=== PATIENT | female | born 1990 | race Caucasian/White ===

== ENCOUNTER 2019-09-08 17:25 | Emergency (ER) | payer SELFPAY ==
--- NOTE | 2019-09-08 17:27 | ED_ITS ---
Entered by Lina Galindo, acting as scribe for Mina Gutiérrez DO Documented by User: Mina Gutiérrez DO 09/08/19 18:02 HPI - Seizure General: Chief Complaint: Seizure Stated Complaint: MULTIPLE SEIZURES Time Seen by Provider: 09/08/19 17:29 Source: patient and EMS Mode of arrival: EMS Limitations: no limitations History of Present Illness: HPI Narrative: 29 yo female presents with multiple seizures. pt states this started today. pt states she a hx of seizures, but has not been taking her medications due to insurance. pt states she has had neck swelling. pt denies any other symptoms at this time. MD complaint: seizure (2 today) Onset (ago): day(s) (today) Witnessed: Yes - by Other Trauma: No Seizure History: Yes Place: Home Possible Precipitating Event: medication (been of medications due to insurance) Associated symptoms: Reports other (neck swelling); Deny chest pain, chills, confusion, fever(s) or malaise Treatments prior to arrival: none Review of Systems Const: Denies: fever, chills, body aches, change in appetite, fatigue or malaise Eyes: Denies: change in vision or blurry vision ENMT: Denies: throat pain, ear pain, nasal discharge or nasal congestion Card: Denies: chest pain, edema, shortness of breath on exertion or shortness of breath when lying down Resp: Denies: shortness of breath, productive cough or non-productive cough GI: Denies: abdominal pain, nausea, vomiting, vomiting blood, coffee grounds in vomit, diarrhea, constipation, bloating, blood in stool or black tarry stool : Denies: flank pain, difficulty urinating, painful urination, urinary jammie quency or urinary urgency Musc: Denies: neck pain, back pain, extremity pain, extremity swelling, joint pain or joint swelling Skin/Breast: Denies: rash or itching Neuro: Denies: headache, numbness in extremities, weakness in extremities, changes in sensation, lack of coordination, difficulty walking, frequent falls, dizziness, vertigo or confusion Psych: Denies: anxiety, depression, loss of interest, visual hallucinations, auditory hallucinations, suicidal ideation or homicidal ideation Endo: Denies: excessive urination, excessive thirst, tired all the time or cold intolerance Ruddy/Lymph: Denies: easy bruising, easy bleeding, petechiae, enlarged lymph nodes or tender lymph nodes [facility] ED PFSH: Medical History (Updated 09/08/19 @ 19:04 by Yesica Rodriguez) History of fibromyalgia History of lupus History of seizure Social History Smoking and tobacco status: never smoked Physical Exam Const: COMMON NORMALS: no apparent distress GENERAL APPEARANCE: cooperative and comfortable ORIENTATION/CONSCIOUSNESS: Yes awake, Yes oriented to person, Yes oriented to place and Yes oriented to time HENMT: COMMON NORMALS: normocephalic, head/scalp atraumatic, hearing grossly normal bilaterally, external ears normal, EAC's normal, TM's normal bilaterally, nasal mucous membranes and turbinates normal, moist oral mucous membranes and oropharynx normal HEAD & SCALP: normocephalic and atraumatic NOSE: nasal mucous membranes and turbinates normal EXTERNAL EAR: Yes external ears normal EXTERNAL AUDITORY CANAL: EAC's normal TYMPANIC MEMBRANE: TM's normal bilaterally Eye: COMMON NORMALS: PERRL, EOMs intact bilaterally, conjunctivae normal and no scleral icterus CONJUNCTIVA: Yes conjunctivae normal PUPIL: Yes PERRL Neck/C-Spine: COMMON NORMALS: full ROM, no lymphadenopathy, supple and no JVD Lymph: LYMPHATIC: no lymphadenopathy noted and no lymphedema noted Resp: COMMON NORMALS: normal respiratory effort, no retractions, no use of accessory muscles and clear to auscultation bilaterally AUSCULTATION: clear to auscultation bilaterally Cardio: COMMON NORMALS: no JVD, regular rate, regular rhythm and no murmurs RATE: regular rate RHYTHM: regular rhythm GI: COMMON NORMALS: soft to palpation and no hepatosplenomegaly AUSCULTATION: Yes normoactive bowel sounds PALPATION: Yes soft, No tender, No guarding and Yes no hepatosplenomegaly Extremity: COMMON NORMALS: normal to inspection, normal capillary refill, no clubbing, cyanosis or edema, no calf tenderness and no pedal edema Neuro: SENSORIUM/ORIENTATION: Yes oriented to person, Yes oriented to place and Yes oriented to time Skin: COMMON NORMALS: no rashes or lesions noted GENERAL SKIN EXAM: no rashes or lesions noted Course ED course: Signed patient out to Dr. Roberson. Labs pending patient being loaded with Bandspeedra Vital Signs: Vital signs: Vital Signs Pulse Rate 86 09/08/19 19:17 Respiratory Rate 17 09/08/19 19:17 Blood Pressure 113/73 09/08/19 19:17 Pulse Oximetry 96 09/08/19 19:17 MDM - Seizure Lab Data: Labs: Lab Results 09/08/19 09/08/19 09/08/19 Range/Units 17:57 17:57 17:57 WBC 10.1 H (4.0-10.0) 10^3/ uL RBC 4.81 (4.1-5.3) 10^6/u L Hgb 13.3 (11.5-15.3) g/dL Hct 40.2 (37.0-47.0) % MCV 83.6 (81-99) fL MCH 27.7 L (28.0-34.0) pg MCHC 33.1 (30.0-36.0) g/dL RDW 14.3 (12.1-15.1) % Plt Count 345 (130-400) 10^3/c mm MPV 10.0 (7.4-10.4) fL Neut % (Auto) 66.1 % Lymph % (Auto) 25.8 % [place] % (Auto) 4.7 % Eos % (Auto) 2.8 % Baso % (Auto) 0.3 % Neut # (Auto) 6.7 (1.8-7.7) 10^3/u L Lymph # (Auto) 2.6 (0.8-4.8) 10^3/u L [place] # (Auto) 0.5 (0.2-0.9) 10^3/u L Eos # (Auto) 0.3 (0.0-0.8) 10^3/u L Baso # (Auto) 0.0 (0.0-0.1) 10^3/u L Nucleated RBC % (a uto) 0 % Nucleated RBCs # 0.0 /100WBC Sodium 139 (136-145) mmol/L Potassium 3.9 (3.5-5.1) mmol/L Chloride 103 (98-107) mmol/L Carbon Dioxide 24 (22-29) mmol/L Anion Gap 15.9 (5-19) BUN 13 (6-20) mg/dL Creatinine 0.7 (0.5-0.9) mg/dL GFR Calculation 100.4 (90-130) mL/min Glucose 105 (65-115) mg/dL Calcium 9.8 (8.5-10.5) mg/dL Magnesium 2.2 (1.7-2.3) mg/dL Total Bilirubin 0.3 (0.15-1.2) mg/dL AST 12 (0-32) U/L ALT 14 (0-33) U/L Alkaline Phosphata se 103 (35-105) IU/L Creatine Kinase 35 (26-192) U/L Total Protein 7.6 (6.6-8.7) g/dL Albumin 4.0 (3.5-5.2) g/dL Globulin 3.6 (1.3-4.6) g/dL HCG, Qual Negative (Negative) Discharge Plan Discharge Patient Disposition: Home, Self-Care Clinical Impression: Generalized seizure Condition: Stable Prescriptions: New Keppra 500 mg tablet 500 mg PO BID Qty: 60 RF: 0 Discharge Orders: Discharge Order (Routine); Ordered 09/08/19 Ordered By: Yesica Rodriguez Referrals: Jaqueline Feng MD [Physician] - 1-3 days Libzeth Hodges DO [Primary Care Provider] - Discharge Diet: Usual diet Discharge Activity: Increase activity as tolerated Patient Instructions: Epilepsy (ED), Recurrent Seizures Adult (ED) Activity Restrictions/Additional Instructions: No driving, no working at heights, no tub baths, no swimming alone or anything else that would put you at risk should you have another seizure. Please return to the ER immediately for any of the signs or symptoms listed on your discharge instruction sheets, worsening/changing of your symptoms, you are not getting better as quickly as expected, or for ANY other cause or concerns. Discharge Date/Time: 09/08/19 19:17 Sign Out Sign Out Data: Patient Sign Out occurred on 09/08/19 at 18:10. Patient's care was discussed, and care was transferred from Mina Gutiérrez DO to Yesica Rodriguez. Sign Out Comment: Labs pending patient being loaded on Keppra discussed with Dr. Roberson Last updated by Mina Gutiérrez DO at 09/08/19 18:01 Coding Level of Care Code ED Costume Cutter for Chg Fwd Exam Comprehensive Documented by User: Yesica Rodriguez 09/09/19 00:03 HPI - Seizure General: Chief Complaint: Seizure Stated Complaint: MULTIPLE SEIZURES Time Seen by Provider: 09/08/19 17:29 PFSH ED PFSH: Medical History (Updated 09/08/19 @ 19:04 by Yesica Rodriguez) History of fibromyalgia History of lupus History of seizure Social History Smoking and tobacco status: never smoked Course Vital Signs: Vital signs: Vital Signs Pulse Rate 86 09/08/19 19:17 Respiratory Rate 17 09/08/19 19:17 Blood Pressure 113/73 09/08/19 19:17 Pulse Oximetry 96 09/08/19 19:17 MDM - Seizure MDM Narrative: Medical decision making narrative: Britni is a 29-year-old female who comes in with recurrent seizures. She is been treated for epilepsy in the past but is currently not taking any medications. The patient is well versed on seizure precautions including no tub baths, no swimming alone, no driving and no working at heights. Patient states her license is been gone since she was 23 years old. Overall it is unclear what precipitated this but likely medical noncompliance is the most likely cause. She denies any injuries from her seizures today. I see no sign of infectious etiology. This time I believe she is safe for discharge. Lab Data: Attestation: I reviewed the patient's lab results. Labs: Lab Results 09/08/19 09/08/19 09/08/19 Range/Units 17:57 17:57 17:57 WBC 10.1 H (4.0-10.0) 10^3/ uL RBC 4.81 (4.1-5.3) 10^6/u L Hgb 13.3 (11.5-15.3) g/dL Hct 40.2 (37.0-47.0) % MCV 83.6 (81-99) fL MCH 27.7 L (28.0-34.0) pg MCHC 33.1 (30.0-36.0) g/dL RDW 14.3 (12.1-15.1) % Plt Count 345 (130-400) 10^3/c mm MPV 10.0 (7.4-10.4) fL Neut % (Auto) 66.1 % Lymph % (Auto) 25.8 % [place] % (Auto) 4.7 % Eos % (Auto) 2.8 % Baso % (Auto) 0.3 % Neut # (Auto) 6.7 (1.8-7.7) 10^3/u L Lymph # (Auto) 2.6 (0.8-4.8) 10^3/u L [place] # (Auto) 0.5 (0.2-0.9) 10^3/u L Eos # (Auto) 0.3 (0.0-0.8) 10^3/u L Baso # (Auto) 0.0 (0.0-0.1) 10^3/u L Nucleated RBC % (a uto) 0 % Nucleated RBCs # 0.0 /100WBC Sodium 139 (136-145) mmol/L Potassium 3.9 (3.5-5.1) mmol/L Chloride 103 (98-107) mmol/L Carbon Dioxide 24 (22-29) mmol/L Anion Gap 15.9 (5-19) BUN 13 (6-20) mg/dL Creatinine 0.7 (0.5-0.9) mg/dL GFR Calculation 100.4 (90-130) mL/min Glucose 105 (65-115) mg/dL Calcium 9.8 (8.5-10.5) mg/dL Magnesium 2.2 (1.7-2.3) mg/dL Total Bilirubin 0.3 (0.15-1.2) mg/dL AST 12 (0-32) U/L ALT 14 (0-33) U/L Alkaline Phosphata se 103 (35-105) IU/L Creatine Kinase 35 (26-192) U/L Total Protein 7.6 (6.6-8.7) g/dL Albumin 4.0 (3.5-5.2) g/dL Globulin 3.6 (1.3-4.6) g/dL HCG, Qual Negative (Negative) Discharge Plan Discharge Patient Disposition: Home, Self-Care Clinical Impression: Generalized seizure Condition: Stable Prescriptions: New Keppra 500 mg tablet 500 mg PO BID Qty: 60 RF: 0 Discharge Orders: Discharge Order (Routine); Ordered 09/08/19 Ordered By: Yesica Rodriguez Referrals: Jaqueline Feng MD [Physician] - 1-3 days Lizbeth Hodges DO [Primary Care Provider] - Discharge Diet: Usual diet Discharge Activity: Increase activity as tolerated Patient Instructions: Epilepsy (ED), Recurrent Seizures Adult (ED) Activity Restrictions/Additional Instructions: No driving, no working at heights, no tub baths, no swimming alone or anything else that would put you at risk should you have another seizure. Please return to the ER immediately for any of the signs or symptoms listed on your discharge instruction sheets, worsening/changing of your symptoms, you are not getting better as quickly as expected, or for ANY other cause or concerns. Discharge Date/Time: 09/08/19 19:17 Sign Out Sign Out Data: Patient Sign Out occurred on 09/08/19 at 18:10. Patient's care was discussed, and care was transferred from Mina Gutiérrez DO to Yesica Rodriguez. Sign Out Comment: Labs pending patient being loaded on Keppra discussed with Dr. Roberson Last updated by Mina Gutiérrez DO at 09/08/19 18:01 Coding Level of Care Code ED Costume Cutter for Chg Fwd Exam Comprehensive The documentation recorded by the Mateo alexander Bridget Annette, accurately reflects the service I personally performed and the decisions made by , Mina Gutiérrez DO
[2019-09-08 17:30] VITALS: BP 154/101; PULSE 93; RESP 14; O2SAT 97; BMI 39.3
[2019-09-08 18:05] LABS: Basophils % 0.3 %; Eosinophils # 0.3 10^3/uL (0.0-0.8); Eosinophils % 2.8 %; Hematocrit 40.2 % (37.0-47.0); Hemoglobin 13.3 g/dL (11.5-15.3); Lymphocytes # 2.6 10^3/uL (0.8-4.8); Lymphocytes % 25.8 %; Mean Corpuscular HGB Conc 33.1 g/dL (30.0-36.0); Mean Corpuscular Hemoglobin 27.7 pg (28.0-34.0); Mean Corpuscular Volume 83.6 fL (81-99); Monocytes # 0.5 10^3/uL (0.2-0.9); Monocytes % 4.7 %; Neutrophils # 6.7 10^3/uL (1.8-7.7); Neutrophils % 66.1 %; Nucleated Red Blood Cells % 0 %; Platelet Count 345 10^3/cmm (130-400); Red Blood Count 4.81 10^6/uL (4.1-5.3); Red Cell Distribution Width 14.3 % (12.1-15.1); White Blood Count 10.1 10^3/uL (4.0-10.0)
[2019-09-08 18:17] LABS: Alanine Aminotransferase 14 U/L (0-33); Alkaline Phosphatase 103 IU/L (35-105); Anion Gap 15.9 (5-19); Aspartate Amino Transferase 12 U/L (0-32); Blood Urea Nitrogen 13 mg/dL (6-20); Calcium 9.8 mg/dL (8.5-10.5); Carbon Dioxide 24 mmol/L (22-29); Chloride 103 mmol/L (98-107); Creatine Phosphokinase 35 U/L (26-192); Globulin 3.6 g/dL (1.3-4.6); Glomerular Filtration Rate 100.4 mL/min (90-130); Glucose 105 mg/dL (65-115); Magnesium 2.2 mg/dL (1.7-2.3); Potassium 3.9 mmol/L (3.5-5.1); Sodium 139 mmol/L (136-145); Total Bilirubin 0.3 mg/dL (0.15-1.2); Total Protein 7.6 g/dL (6.6-8.7)
[2019-09-08] MEDS: LORazepam 2 mg/mL INJ 1 mL 1 MG IVP (18:37)
[2019-09-08 18:55] LABS: HCG, Serum Qual Negative (Negative)
[2019-09-08] MEDS: ibuprofen 600 mg Tablet PO (19:13)
[2019-09-08 19:17] VITALS: BP 113/73; PULSE 86; RESP 17; O2SAT 96
== END 2019-09-08 19:17 | disposition home or self-care (01) ==
PROVIDERS: Family Medicine; Emergency Provider Emergency Medicine; Family Provider Family Medicine; PCP Family Medicine
DX: G40.409 Other generalized epilepsy and epileptic syndromes, not intractable, without status epilepticus (principal)
CPT/HCPCS: 36415; 80053; 82550; 83735; 84703; 85025; 96365; 96366; 96375; 99283; J1953; J2060

== ENCOUNTER 2019-09-10 14:29 | Emergency (ER) | payer SELFPAY ==
[2019-09-10 14:35] VITALS: BP 195/131; PULSE 95; RESP 18; TEMP 36.6; O2SAT 99; BMI 39.3
--- NOTE | 2019-09-10 14:48 | ED_ITS ---
Entered by Lina Galindo, acting as scribe for Myrna Gotti MD HPI - Back Pain/Injury General: Chief Complaint: Back Pain/Injury Stated Complaint: back pain Time Seen by Provider: 09/10/19 14:48 Source: patient, family and EMS Mode of arrival: EMS Limitations: physical limitation History of Present Illness: HPI Narrative: 29 yo female presents with back pain. pt states this started over a year ago but worsened in the last few days. pt states she has been out of her psych medications, pain medications and every day medications due to no insurance or disability. pt states movement or walking makes this worse.pt described the pain as sharp and stabbing. pt is tearful. pt states pain medications makes this better at time. elicited complaint: back pain and other (seizures) Pertinent past history: prior back pain Onset (ago): day(s) (2 days ago) Timing: constant and progressively worsening Severity: moderate Similar Symptoms Previously: Yes Quality: sharp and stabbing Radiation: other Exacerbating factors: walking Relieving factors: medication Context: turning/twisting and bending Associated symptoms: Reports difficulty walking and other (out of psych medications, and medications for seizures and back pain for1yr); Deny abdominal pain, chills, change in bowel habits, fever(s), nausea or vomiting Treatments prior to arrival: other (nothing) Review of Systems General: Reports: 10 or more systems reviewed and unremarkable except in HPI and below Const: Denies: fever or chills Eyes: Denies: change in vision ENMT: Denies: throat pain Card: Denies: chest pain Resp: Denies: shortness of breath GI: Denies: abdominal pain, nausea, vomiting or change in bowel habits : Denies: difficulty urinating Skin/Breast: Denies: rash Neuro: Reports: difficulty walking Psych: Denies: hopelessness or suicidal ideation Endo: Denies: excessive urination Ruddy/Lymph: Denies: easy bruising or easy bleeding All/Imm: Denies: hives PFS ED PFSH: Medical History (Updated 09/10/19 @ 17:23 by Myrna Gotti MD) History of fibromyalgia History of lupus History of seizure Social History Smoking and tobacco status: never smoked Physical Exam Narrative: EXAM NARRATIVE: tearful on exam Const: COMMON NORMALS: no apparent distress, oriented x3, alert and well nourished HENMT: COMMON NORMALS: normocephalic and external nose normal HEAD & SCALP: normocephalic NOSE: external nose normal MOUTH: no trismus Eye: COMMON NORMALS: EOMs intact bilaterally and conjunctivae normal CONJUNCTIVA: Yes conjunctivae normal Neck/C-Spine: COMMON NORMALS: full ROM, no lymphadenopathy and supple CERVICAL SPINE: Yes cervical ROM normal Lymph: LYMPHATIC: no lymphadenopathy noted Resp: COMMON NORMALS: normal respiratory effort, no retractions, no use of accessory muscles and clear to auscultation bilaterally EFFORT & INSPECTION: Yes able to speak in complete sentences AUSCULTATION: clear to auscultation bilaterally Cardio: COMMON NORMALS: regular rate and regular rhythm RATE: regular rate RHYTHM: regular rhythm GI: COMMON NORMALS: normal to inspection, nondistended, normoactive bowel sounds, soft to palpation, non-tender and no masses INSPECTION: Yes normal to inspection AUSCULTATION: Yes normoactive bowel sounds PALPATION: Yes soft, No guarding and No rigid Back/Pelvis: OTHER: tender to touch entire back. Extremity: GENERAL: Yes normal exam except as noted Neuro: COMMON NORMALS: oriented x3 and CN's II-XII intact bilaterally SENSORIUM/ORIENTATION: Yes alert SPEECH: speech normal Psych: COMMON NORMALS: mental status grossly normal Skin: COMMON NORMALS: no rashes or lesions noted GENERAL SKIN EXAM: no rashes or lesions noted Course Vital Signs: Vital signs: Vital Signs Temperature 97.9 F 09/10/19 14:35 Pulse Rate 15 L 09/10/19 18:14 Respiratory Rate 16 09/10/19 18:14 Blood Pressure 140/87 09/10/19 18:14 Pulse Oximetry 98 09/10/19 18:14 MDM - Back Pain/Injury MDM Narrative: Medical decision making narrative: 1614 went to reevaluate the patient she is no longer tearful and looks more comfortable but says that her pain is not really improved but that does not coincide with what I see on interview. She was given IM and p.o. medications as nurse thought that she would be a hard stick. Patient actually tells me she wants the IV and she thinks the IV fluids would be helpful. I have reordered the IV and IV pain medication and then will reevaluate her she will be able to go home shortly after this. 172 pain down to an 8 out of 10. Encouraged her to follow-up with primary care provider as an outpatient Discharge Plan Discharge Patient Disposition: Home, Self-Care Clinical Impression: Fibromyalgia Back pain Qualifiers: Back pain location: back pain in unspecified location Chronicity: chronic Back pain laterality: unspecified Qualified Code(s): M54.9 - Dorsalgia, unspecified Condition: Stable Prescriptions: New Valium 5 mg tablet 5 mg PO TID PRN (Reason: muscle spasm) Qty: 12 RF: 0 hydrocodone-ibuprofen 5-200 mg tablet 1 tab PO Q6H PRN (Reason: pain) Qty: 10 RF: 0 No Action levetiracetam [Keppra] 500 mg tablet 500 mg PO BID Qty: 60 RF: 0 ibuprofen 200 mg Tablet 800 mg PO BID PRN (Reason: Pain) RF: 0 Plaquenil 200 mg Tablet 200 mg PO BID RF: 0 Referrals: Lizbeth Hodges DO [Primary Care Provider] - Patient Instructions: Chronic Back Pain (ED) Discharge Date/Time: 09/10/19 18:15 Coding Level of Care Code ED Condominium Property Manager for Chg Fwd Exam Comprehensive The documentation recorded by the Mateo alexander Bridget Annette, accurately reflects the service I personally performed and the decisions made by , Myrna Gotti MD Sep 10, 2019 14:29
[2019-09-10 14:50] VITALS: O2SAT 98
[2019-09-10] MEDS: diazePAM 5 mg Tablet 10 MG PO (15:28)
[2019-09-10] MEDS: dexamethasone 4 mg/mL INJ 8 MG PO (15:28)
[2019-09-10] MEDS: morphine 4 mg/mL SDV 1 mL IM (15:28)
[2019-09-10 15:52] VITALS: BP 147/86; PULSE 72; RESP 18; O2SAT 98
[2019-09-10] MEDS: sodium chloride 0.9% 1,000 ML 999 ML IV (16:53)
[2019-09-10] MEDS: fentaNYL 50 mcg/mL INJ 2mL IVP (16:54)
[2019-09-10 18:14] VITALS: BP 140/87; PULSE 15; RESP 16; O2SAT 98
--- NOTE | 2019-09-11 11:28 | DCPLANNER ---
manager dish had message to speak with patient about getting a primary care physician. manager dish called patient, she stated that she does not have insurance, case checker will mail patient both of the financial risk manager applications for the hospital to fill out and turn back in. manager dish gave patient the names of some [facility] providers that were taking new patients at this time. manager dish also told patient that there is a clinic is [place] that is taking new patients. manager dish offered to make a follow up appointment for patient with a primary care physician, patient stated that she would wait and fill out the financial risk manager application, before scheduling an appointment.
== END 2019-09-10 18:15 | disposition home or self-care (01) ==
PROVIDERS: Emergency Provider Emergency Medicine; Family Provider Family Medicine; PCP Family Medicine
DX: M79.7 Fibromyalgia (principal); M54.9 Dorsalgia, unspecified
CPT/HCPCS: 96361; 96372; 96374; 96375; 99281; 99283; J1100; J2270; J3010; J7030

== ENCOUNTER 2019-09-16 17:32 | Inpatient (IN) | payer SELFPAY ==
[2019-09-16 17:36] VITALS: BMI 39.3
--- NOTE | 2019-09-16 17:49 | ED_ITS ---
HPI - Psych General: Chief Complaint: Psychiatric Symptoms Stated Complaint: SI, HALLUCINATION Time Seen by Provider: 09/16/19 17:44 Source: patient Mode of arrival: ambulatory Limitations: no limitations History of Present Illness: HPI Narrative: Patient comes in today with complaints of auditory hallucinations that are telling her to kill herself. Patient does have a history of depression. Patient also has a history of seizures but she uses Keppra for. Patient also reports some medical diagnosis of lupus. Other medications patient is prescribed includes Plaquenil, hyd rocodone, and diazepam. Patient appears well. Patient appears depressed. Associated symptoms: Reports depression Review of Systems General: Reports: 10 or more systems reviewed and unremarkable except in HPI and below Psych: Reports: depression PFSH ED PFSH: Medical History (Updated 09/16/19 @ 00:00 by ) History of fibromyalgia History of lupus History of seizure Social History Smoking and tobacco status: never smoked Female Reproductive History: Date of last menstrual period: 06/15/19 Physical Exam Const: COMMON NORMALS: no apparent distress and oriented x3 GENERAL APPEARANCE: cooperative HENMT: COMMON NORMALS: normocephalic, external ears normal, EAC's normal, TM's normal bilaterally and external nose normal HEAD & SCALP: normal to inspe ction and normocephalic FACE & SINUS: normal facial exam NOSE: external nose normal GENERAL EAR: hearing not grossly impaired EXTERNAL EAR: Yes external ears normal EXTERNAL AUDITORY CANAL: EAC's normal TYMPANIC MEMBRANE: TM's normal bilaterally MOUTH: oral and palatal mucosa normal THROAT: posterior oropharynx normal Eye: COMMON NORMALS: PERRL and EOMs intact bilaterally PUPIL: Yes PERRL Neck/C-Spine: COMMON NORMALS: full ROM and no lymphadenopathy Lymph: LYMPHATIC: no lymphedema noted Chest: COMMONS NORMALS: inspection of chest normal and palpation of chest normal Resp: COMMON NORMALS: normal respiratory effort and clear to auscultation bilaterally AUSCULTATION: clear to auscultation bilaterally Cardio: COMMON NORMALS: regular rate and regular rhythm RATE: regular rate RHYTHM: regular rhythm GI: COMMON NORMALS: normal to inspection, nondistended, normoactive bowel sounds and non-tender : COMMON NORMALS: Yes no CVA tenderness BLADDER/KIDNEY EXAM: Yes no CVA tenderness Back/Pelvis: COMMON NORMALS: no CVA tenderness and thoracic and lumbar spine normal to inspection Extremity: COMMON NORMALS: normal to inspection GENERAL: No edema Neuro: COMMON NORMALS: oriented x3, moves all extremities and no focal motor deficits Psych: COMMON NORMALS: thought process normal, cooperative and speech normal APPEARANCE: Yes disheveled ATTITUDE: Yes other (tearful) ACTIVITY/MOTOR BEHAVIOR: Yes appropriate eye contact SPEECH: Yes normal speech MOOD & AFFECT: Yes depressed mood THOUGHT PROCESS: normal thought process THOUGHT CONTENT: Yes hallucination(s) (voices tell her to kill self) auditory ATTENTION/CONCENTRATION: Yes attention grossly intact MEMORY/COGNITION: Yes memory grossly intact INSIGHT: fair JUDGEMENT: fair Skin: COMMON NORMALS: no rashes or lesions noted GENERAL SKIN EXAM: no rashes or lesions noted MDM - Psych MDM Narrative: Medical decision making narrative: Patient comes in today for complaints of suicidal thoughts along with hallucinations of voices that are threatening herself and telling her to kill herself. Patient reports previous history of anxiety, depression, seizures, lupus. Patient appears well. Patient is tearful on exam. Respirations are even lungs are clear to auscultation. Skin is warm and dry. Differential diagnosis includes depression with psychosis, suicidal ideation, malingering. Laboratory values noted sodium 134, white count of 10.7, urine hCG was negative, patient was negative for alcohol Tylenol and salicylates. Consulted Dr. Krishnan, psychiatrist, who agreed to admission to [facility] for further evaluation and treatment along with monitoring for protection of self. Lab Data: Labs: Lab Results 09/16/19 09/16/19 09/16/19 Range/Units 18:00 18:00 18:00 WBC (4.0-10.0) 10^3/ uL RBC (4.1-5.3) 10^6/u L Hgb (11.5-15.3) g/dL Hct (37.0-47.0) % MCV (81-99) fL MCH (28.0-34.0) pg MCHC (30.0-36.0) g/dL RDW (12.1-15.1) % Plt Count (130-400) 10^3/c mm MPV (7.4-10.4) fL Neut % (Auto) % Lymph % (Auto) % Brown % (Auto) % Eos % (Auto) % Baso % (Auto) % Neut # (Auto) (1.8-7.7) 10^3/u L Lymph # (Auto) (0.8-4.8) 10^3/u L Brown # (Auto) (0.2-0.9) 10^3/u L Eos # (Auto) (0.0-0.8) 10^3/u L Baso # (Auto) (0.0-0.1) 10^3/u L Nucleated RBC % (a uto) % Nucleated RBCs # /100WBC Sodium (136-145) mmol/L Potassium (3.5-5.1) mmol/L Chloride (98-107) mmol/L Carbon Dioxide (22-29) mmol/L Anion Gap (5-19) BUN (6-20) mg/dL Creatinine (0.5-0.9) mg/dL GFR Calculation (90-130) mL/min Glucose (65-115) mg/dL Calcium (8.5-10.5) mg/dL Total Bilirubin (0.15-1.2) mg/dL AST (0-32) U/L ALT (0-33) U/L Alkaline Phosphata se (35-105) IU/L Total Protein (6.6-8.7) g/dL Albumin (3.5-5.2) g/dL Globulin (1.3-4.6) g/dL HCG, Qual Negative (Negative) Urine Color Straw (Yellow) Urine Appearance Clear (CLEAR) Urine pH 7 (5-7) Ur Specific Gravit y 1.005 (1.005-1.030) Urine Protein Neg (Negative) Urine Glucose (UA) Norm (Normal) Urine Ketones Negative (Negative) Urine Blood Neg (Negative) Urine Nitrate Negative (Negative) Urine Bilirubin Neg (NEGATIVE) Urine Urobilinogen Norm (Negative) mg/dL Ur Leukocyte Mi ase Negative (Negative) Salicylates (3-10) mg/dL Urine Opiates Scre en Negative (Negative) ng/mL Acetaminophen (10-30) ug/mL Ur Barbiturates Sc reen Negative (Negative) ng/mL Ur Phencyclidine S crn Negative (Negative) ng/mL Ur Amphetamines Sc reen Negative (Negative) ng/mL U Benzodiazepines Scrn Negative (Negative) ng/mL Urine Cocaine Scre en Negative (Negative) ng/mL U Marijuana (THC) Screen Negative (Negative) ng/mL Ethyl Alcohol (0-10) mg/dL 09/16/19 09/16/19 Range/Units 18:16 18:16 WBC 10.7 H (4.0-10.0) 10^3/ uL RBC 5.25 (4.1-5.3) 10^6/u L Hgb 13.8 (11.5-15.3) g/dL Hct 41.6 (37.0-47.0) % MCV 79.2 L (81-99) fL MCH 26.3 L (28.0-34.0) pg MCHC 33.2 (30.0-36.0) g/dL RDW 14.0 (12.1-15.1) % Plt Count 405 H (130-400) 10^3/c mm MPV 9.8 (7.4-10.4) fL Neut % (Auto) 67.7 % Lymph % (Auto) 24.4 % Brown % (Auto) 4.6 % Eos % (Auto) 2.5 % Baso % (Auto) 0.5 % Neut # (Auto) 7.2 (1.8-7.7) 10^3/u L Lymph # (Auto) 2.6 (0.8-4.8) 10^3/u L Brown # (Auto) 0.5 (0.2-0.9) 10^3/u L Eos # (Auto) 0.3 (0.0-0.8) 10^3/u L Baso # (Auto) 0.1 (0.0-0.1) 10^3/u L Nucleated RBC % (a uto) 0 % Nucleated RBCs # 0.0 /100WBC Sodium 134 L (136-145) mmol/L Potassium 4.0 (3.5-5.1) mmol/L Chloride 98 (98-107) mmol/L Carbon Dioxide 22 (22-29) mmol/L Anion Gap 18.0 (5-19) BUN 13 (6-20) mg/dL Creatinine 0.8 (0.5-0.9) mg/dL GFR Calculation 86.0 L (90-130) mL/min Glucose 119 H (65-115) mg/dL Calcium 10.1 (8.5-10.5) mg/dL Total Bilirubin 0.4 (0.15-1.2) mg/dL AST 13 (0-32) U/L ALT 14 (0-33) U/L Alkaline Phosphata se 112 H (35-105) IU/L Total Protein 8.0 (6.6-8.7) g/dL Albumin 4.2 (3.5-5.2) g/dL Globulin 3.8 (1.3-4.6) g/dL HCG, Qual (Negative) Urine Color (Yellow) Urine Appearance (CLEAR) Urine pH (5-7) Ur Specific Gravit y (1.005-1.030) Urine Protein (Negative) Urine Glucose (UA) (Normal) Urine Ketones (Negative) Urine Blood (Negative) Urine Nitrate (Negative) Urine Bilirubin (NEGATIVE) Urine Urobilinogen (Negative) mg/dL Ur Leukocyte Mi ase (Negative) Salicylates < 0.3 L (3-10) mg/dL Urine Opiates Scre en (Negative) ng/mL Acetaminophen < 5.0 L (10-30) ug/mL Ur Barbiturates Sc reen (Negative) ng/mL Ur Phencyclidine S crn (Negative) ng/mL Ur Amphetamines Sc reen (Negative) ng/mL U Benzodiazepines Scrn (Negative) ng/mL Urine Cocaine Scre en (Negative) ng/mL U Marijuana (THC) Screen (Negative) ng/mL Ethyl Alcohol < 10 (0-10) mg/dL Discharge Plan Discharge Prescriptions: No Action levetiracetam [Keppra] 500 mg tablet 500 mg PO BID Qty: 60 RF: 0 ibuprofen 200 mg Tablet 800 mg PO BID PRN (Reason: Pain) RF: 0 hydroxychloroquine [Plaquenil] 200 mg Tablet 200 mg PO BID RF: 0 diazepam [Valium] 5 mg tablet 5 mg PO TID PRN (Reason: muscle spasm) Qty: 12 RF: 0 hydrocodone-ibuprofen 5-200 mg tablet 1 tab PO Q6H PRN (Reason: pain) Qty: 10 RF: 0 Benadryl Allergy 25 mg Tablet 25 mg PO Q6H PRN (Reason: Itching) RF: 0 Coding Level of Care Code ED Data Technical Lead for Chg Fwd Exam Comprehensive
[2019-09-16 17:55] VITALS: O2SAT 94
[2019-09-16 17:57] VITALS: BP 129/89; PULSE 116; RESP 20; TEMP 37.3; O2SAT 95
[2019-09-16 18:24] LABS: Basophils # 0.1 10^3/uL (0.0-0.1); Basophils % 0.5 %; Eosinophils # 0.3 10^3/uL (0.0-0.8); Eosinophils % 2.5 %; Hematocrit 41.6 % (37.0-47.0); Hemoglobin 13.8 g/dL (11.5-15.3); Lymphocytes # 2.6 10^3/uL (0.8-4.8); Lymphocytes % 24.4 %; Mean Corpuscular HGB Conc 33.2 g/dL (30.0-36.0); Mean Corpuscular Hemoglobin 26.3 pg (28.0-34.0); Mean Corpuscular Volume 79.2 fL (81-99); Mean Platelet Volume 9.8 fL (7.4-10.4); Monocytes # 0.5 10^3/uL (0.2-0.9); Monocytes % 4.6 %; Neutrophils # 7.2 10^3/uL (1.8-7.7); Neutrophils % 67.7 %; Nucleated Red Blood Cells % 0 %; Platelet Count 405 10^3/cmm (130-400); Red Blood Count 5.25 10^6/uL (4.1-5.3); White Blood Count 10.7 10^3/uL (4.0-10.0)
[2019-09-16 18:24] LABS: Add Urine Microscopic? NO
[2019-09-16 18:37] LABS: Alanine Aminotransferase 14 U/L (0-33); Albumin Level 4.2 g/dL (3.5-5.2); Alkaline Phosphatase 112 IU/L (35-105); Aspartate Amino Transferase 13 U/L (0-32); Blood Urea Nitrogen 13 mg/dL (6-20); Calcium 10.1 mg/dL (8.5-10.5); Carbon Dioxide 22 mmol/L (22-29); Chloride 98 mmol/L (98-107); Globulin 3.8 g/dL (1.3-4.6); Glucose 119 mg/dL (65-115); Sodium 134 mmol/L (136-145); Total Bilirubin 0.4 mg/dL (0.15-1.2)
[2019-09-16 18:38] LABS: Acetaminophen < 5.0 ug/mL (10-30); Alcohol Level < 10 mg/dL (0-10); Salicylate < 0.3 mg/dL (3-10)
[2019-09-16 18:40] LABS: Amphetamines Screen Urine Negative (Negative); Barbiturates Screen Urine Negative (Negative); Benzodiazepines Screen Urine Negative (Negative); Cocaine Screen Urine Negative (Negative); Opiate Screen Urine Negative (Negative); PCP Screen Urine Negative (Negative); THC Screen Urine Negative (Negative)
[2019-09-16 18:42] LABS: Bilirubin Urine Neg (NEGATIVE); Blood Urine Neg (Negative); Glucose Urine UA Norm (Normal); Ketones Urine Negative (Negative); Leukocyte Esterase Urine Negative (Negative); Nitrate Urine Negative (Negative); Protein Urine Neg (Negative); Specific Gravity, Urine 1.005 (1.005-1.030); Urine Appearance Clear (CLEAR); Urine Color Straw (Yellow); Urobilinogen Urine Norm (Negative); pH Urine 7 (5-7)
[2019-09-16 18:43] LABS: HCG Qualitative Urine. Negative (Negative)
[2019-09-16 20:02] VITALS: BP 125/90; PULSE 100; RESP 20; O2SAT 98
[2019-09-16 21:10] VITALS: BP 128/95; PULSE 111; RESP 17; TEMP 37.1; O2SAT 97
[2019-09-16 22:00] VITALS: BP 128/95; PULSE 111; RESP 17; TEMP 37.1; O2SAT 97
[2019-09-17 06:00] VITALS: BP 147/100; PULSE 91; RESP 18; TEMP 36.4; O2SAT 98
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
[2019-09-17] MEDS: diazePAM 5 mg Tablet PO ×2 (10:07→18:33)
[2019-09-17] MEDS: hydroxychloroquine 200 mg Tablet PO ×2 (11:34→17:57)
[2019-09-17 13:58] VITALS: BP 161/108; PULSE 103; RESP 20; TEMP 36.6; O2SAT 99
[2019-09-17 22:00] VITALS: BP 159/101; PULSE 101; RESP 19; TEMP 36.9; O2SAT 99
[2019-09-17] MEDS: trazodone 50 mg Tablet PO (22:09)
--- NOTE | 2019-09-17 22:10 | PC.NURSE ---
Pt given Trazadone
[2019-09-18 06:00] VITALS: BP 157/88; PULSE 100; RESP 16; TEMP 36.5; O2SAT 97
[2019-09-18] MEDS: hydroxychloroquine 200 mg Tablet PO ×2 (08:43→17:22)
[2019-09-18] MEDS: diazePAM 5 mg Tablet PO (09:15)
[2019-09-18 14:51] VITALS: BP 157/88; PULSE 100; RESP 16; TEMP 36.5; O2SAT 97
--- NOTE | 2019-09-18 15:52 | PM.CONSULT ---
Providers/Reason For Consult Consulting Physican/Specialty*: Internal medicine Reason for Consult*: Antiseizure medications Attending Physician: Boni Krishnan MD Primary Care Provider: Lizbeth Hodges DO History of Present Illness History of Present Illness Britni Sharpe is a 29 year old female lupus, seizure disorder for which she was recently started on Keppra on September 08 who came to the ER on September 16 endorsing auditory and visual hallucinations. Patient's care per hour withheld and since then patient did not have any further visual auditory hallucinations. It was thought that patient's symptoms of hallucinations are most likely because of interaction between her psychiatric medications of Keppra. Patient supposed to be discharged today internal medicine consult is sought for possible medications required for seizures going forward. On evaluation patient states she has been on multiple medications in the past for absent seizures. She complains of having grand mal seizures twice in her life. She states she was formally diagnosed of having seizure disorder when she was 20 years of age. Her other medications which she takes regularly is Plaquenil. She has tried gabapentin before which did not really help, Depakote which did not really help, Lamictal which made her symptoms worse. Review of Systems Const: Denies: fever, chills, body aches, change in appetite, malaise, night sweats, diaphoresis, change in sleep pattern, daytime sleepiness or snoring Eyes: Denies: change in vision, blurry vision, photophobia, eye discomfort or eye discharge ENMT: Denies: throat pain, enlarged tonsils, hoarseness, mouth pain, oral sores/lesions, dry mouth, tinnitus, nasal congestion or post nasal drip Card: Denies: chest pain, palpitations, irregular heart rhythm, edema, swelling of feet/ankles, lightheadedness, syncope, pre-syncope, shortness of breath on exertion, shortness of breath when lying down, leg pain with exertion or bluish discoloration of hands/feet Resp: Denies: shortness of breath, productive cough, non-productive cough, wheezing, stridor, pain on inspiration, change in phlegm color, coughing up blood or chest congestion GI: Denies: abdominal pain, nausea, vomiting, vomiting blood, coffee grounds in vomit, difficulty swallowing, heartburn/indigestion, diarrhea, constipation, bloating, cramping, change in bowel habits, painful bowel movements, blood in stool or black tarry stool : Denies: flank pain, painful urination, urinary frequency, urinary urgency, urinary hesitancy, nighttime urination or blood in urine Musc: Denies: neck pain, back pain, extremity pain, joint pain, joint swelling, redness, joint stiffness or limited range of motion Neuro: Denies: headache, numbness in extremities, weakness in extremities, changes in sensation, lack of coordination, difficulty walking, frequent falls, dizziness, vertigo, confusion, slurred speech, difficulty communicating thoughts or seizure-like activity Psych: Denies: anxiety, depression, mood swings, panic attacks, hopelessness or irritability Endo: Denies: excessive urination, excessive thirst, tired all the time, cold intolerance, excessive sweating, flushing or heat intolerance Ruddy/Lymph: Denies: easy bruising or easy bleeding All/Imm: Denies: tongue swelling, facial swelling or acute wheezing Meds/Allergies Home Medications and Allergies Home Medications Medication Instructions Recorded Confirmed Type hydroxychloroquine [Plaquenil] 200 mg PO BID 09/10/19 09/16/19 History ibuprofen 800 mg PO BID PRN 09/10/19 09/16/19 History Benadryl Allergy 25 mg PO Q6H PRN 09/16/19 09/16/19 History Allergies Allergy/AdvReac Type Severity Reaction Status Date / Time acetaminophen [From Tylenol] Allergy Unknown Verified 09/10/19 14:40 tramadol Allergy Unknown Verified 09/10/19 14:40 Current Medications Current Medications Generic Name Dose Route Start Last Admin Trade Name Freq PRN Reason Stop Dose Admin Diazepam 5 mg 09/16/19 21:54 09/18/19 09:15 Valium PO 5 mg TID PRN Administration muscle spasm Hydroxychloroquine Sulfate 200 mg 09/17/19 09:00 09/18/19 08:43 Plaquanil PO 200 mg BID BJ Administration Ibuprofen 800 mg 09/16/19 21:54 09/18/19 09:14 Motrin PO 800 mg BID PRN Administration Pain Trazodone HCl 50 mg 09/16/19 20:00 09/17/19 22:09 Desyrel PO 50 mg BEDTIME PRN Administration SLEEP PFSH Acute PFSH: Medical History (Updated 09/18/19 @ 15:56 by Lionel Cuevas MD) History of fibromyalgia History of lupus History of seizure Social History Smoking and tobacco status: never smoked Female Reproductive History: Date of last menstrual period: 06/15/19 Vitals/I&O/Wt Last Vital Signs Temp 97.7 F 09/18/19 14:51 Pulse 100 09/18/19 14:51 Resp 16 09/18/19 14:51 BP 157/88 09/18/19 14:51 Pulse Ox 97 09/18/19 14:51 Weight last 48 hrs Weight 131.542 kg Physical Exam Narrative: EXAM NARRATIVE: EXAM NARRATIVE: General: No acute distress, AO x3, NC oxygen supplementation HEENT: PERRLA, pupils bilaterally equal and reactive Chest:Bronchial breath sounds b/l ,decreased air entry, equal good air entry bilaterally, no more fine basal crackles CVS: S1-S2 regular, no murmurs, no tachycardia, no gallops, no rubs Abdomen: Soft, nontender, no organomegaly, bowel sounds present, morbidly obese Neuro: No focal deficits, no facial deformity, AO x3, power 5/5 in all limbs A&P Assessment and plan (1) History of seizure: Status: Acute Code(s): Z87.898 - Personal history of other specified conditions (2) Drug-induced psychotic disorder with hallucinations: Status: Acute Code(s): F19.951 - Other psychoactive substance use, unspecified with psychoactive substance-induced psychotic disorder with hallucinations (3) Major depression with psychotic features: Status: Acute Code(s): F32.3 - Major depressive disorder, single episode, severe with psychotic features Additional A&P Information Seizure disorder: History of absence seizures. On review of medications which patient has tried before she states she has never tried valproic acid in the past. We will start patient on valproic acid 250 mg every 8 hourly for now. Have reviewed the labs and patient's liver function the kidney numbers are within normal limits. Have also checked for possible interactions with other medications which she will be taking. Patient would possibly need to follow-up with Dr. Feng/neurology within next 2 weeks for further medications. While being on valproic acid patient should have liver functions checked in 2 weeks. Thank you for giving me an opportunity in care of Ms. Sharpe. Consult Attestations Medical Necessity Statement: As per primary team Time Spent in Patient Care: Greater than 35 minutes Coding Level of Care Code Acute Backing In Machine Tender for [facility] Diagnoses History of seizure Z87.898 Drug-induced psychotic disorder with hallucinations F19.951 Major depression with psychotic features F32.3
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
== END 2019-09-18 18:04 | disposition home or self-care (01) | DRG 897 ==
LOC: ER 19:16 → NP 19:54
PROVIDERS: Admitting Provider Psychiatry & Neurology Psychiatry; Emergency Provider Nurse Practitioner Family; Family Provider Family Medicine; PCP Family Medicine; Visit Provider Psychiatry & Neurology Psychiatry
DX: F19.951 Other psychoactive substance use, unspecified with psychoactive substance-induced psychotic disorder with hallucinations (principal); F32.3 Major depressive disorder, single episode, severe with psychotic features; G40.909 Epilepsy, unspecified, not intractable, without status epilepticus
CPT/HCPCS: 12345; 36415; 80053; 80307; 81003; 81025; 85025; 90471; 90686; 99284

== ENCOUNTER → 2019-10-02 13:26 | Outpatient (BNVA) | payer SELFPAY | PROVIDERS: Family Provider Family Medicine; PCP Family Medicine; Visit Provider Nurse Practitioner Family | DX: R50.9 Fever, unspecified (principal) | CPT/HCPCS: 87400 ==

== ENCOUNTER → 2020-01-05 12:06 | Outpatient (BNVA) | payer SELFPAY | PROVIDERS: Family Provider Family Medicine; PCP Family Medicine; Visit Provider Nurse Practitioner Family | DX: J02.9 Acute pharyngitis, unspecified (principal); G43.909 Migraine, unspecified, not intractable, without status migrainosus; H66.001 Acute suppurative otitis media without spontaneous rupture of ear drum, right ear; G43.009 Migraine without aura, not intractable, without status migrainosus; Z68.43 Body mass index [BMI] 50.0-59.9, adult; Z71.89 Other specified counseling | CPT/HCPCS: 87071; 87880 ==

== ENCOUNTER 2020-02-25 22:39 | Emergency (ER) | payer SELFPAY ==
--- NOTE | 2020-02-25 22:51 | W.ED.FALL ---
HPI - Fall General: Chief Complaint: Fall Stated Complaint: fall Time Seen by Provider: 02/25/20 22:50 Source: patient Mode of arrival: ambulatory Limitations: no limitations History of Present Illness: HPI Narrative: Patient slipped on the floor while coming down the bathroom. Patient fell to her right side hitting her face against the wall. Patient appears well. Patient appears in mild to moderate pain. Patient reports pain to the right side of the face, right wrist, right hip and right ankle area. When questioned about her right knee patient also reports that that hurts 2. Patient can bear weight but has difficulty due to pain. Review of Systems General: Reports: 10 or more systems reviewed and unremarkable except in HPI and below Musc: Reports: extremity pain [facility] ED PFSH: Medical History (Updated 02/25/20 @ 23:57 by CAMILA Walton) History of fibromyalgia History of lupus History of seizure Social History Smoking and tobacco status: never smoked Female Reproductive History: Date of last menstrual period: 06/15/19 Physical Exam Const: COMMON NORMALS: no acute distress and patient oriented x3 GENERAL APPEARANCE: cooperative HENMT: COMMON NORMALS: Normal external nose present HEAD & SCALP: other (Some mild redness and tenderness to the right facial cheek.) NOSE: Normal external nose present MOUTH: Normal oral and palatal mucosa present THROAT: posterior oropharynx normal Eye: GENERAL EYE: appearance normal, both eyes and all related structures Neck/C-Spine: COMMON NORMALS: full ROM Chest: COMMONS NORMALS: normal inspection of the chest Resp: COMMON NORMALS: normal respiratory effort EFFORT & INSPECTION: Yes able to speak in complete sentences Cardio: COMMON NORMALS: regular rate and regular rhythm RATE: regular rate RHYTHM: regular rhythm GI: COMMON NORMALS: non-tender Back/Pelvis: COMMON NORMALS: thoracic and lumbar spine normal to inspection Extremity: NARRATIVE EXTREMITY EXAM: Tenderness is noted on palpation to the right ankle, right hip, right knee, right wrist. Patient has good range of motion of all extremities. No obvious injury is noted. Neuro: COMMON NORMALS: patient oriented x3 and moves all extremities Psych: COMMON NORMALS: mental status grossly normal and cooperative Skin: COMMON NORMALS: no rashes or lesions noted GENERAL SKIN EXAM: no rashes or lesions noted Course Vital Signs: Vital signs: Vital Signs Temperature 97.2 F L 02/25/20 22:53 Pulse Rate 98 02/25/20 22:53 Respiratory Rate 18 02/25/20 22:53 Blood Pressure 161/119 02/25/20 22:53 Pulse Oximetry 100 02/25/20 22:53 MDM - Fall MDM Narrative: Medical decision making narrative: 30-year-old female comes in today for injuries status post fall. Patient slipped at home and fell onto her right side. Exam notes some erythema to the right side of the face, tenderness to the right wrist, tenderness to the right hip area, tenderness to the knee, and tenderness to the lateral right ankle. Patient normal range of motion of extremities. The minimal swelling was noted to the right lateral ankle. Differential diagnosis includes contusions, fracture, malingering. X-rays of the facial bones, wrist, femur, tib-fib noted no acute fractures. Reviewed exam with patient with recommendations for treatment and follow-up. Patient reports understanding agreed to plan. Discharge Plan Discharge Patient Disposition: Home Clinical Impression: Sprain and strain of right wrist Fall Qualifiers: Encounter type: initial encounter Qualified Code(s): W19.XXXA - Unspecified fall, initial encounter Contusion Qualifiers: Encounter type: initial encounter Contusion area: hip Laterality: right Qualified Code(s): S70.01XA - Contusion of right hip, initial encounter Sprain of ankle Qualifiers: Encounter type: initial encounter Involved ligament of ankle: unspecified ligament Laterality: right Qualified Code(s): S93.401A - Sprain of unspecified ligament of right ankle, initial encounter Condition: Stable Prescriptions: No Action amoxicillin 875 mg tablet 875 mg PO BID 10 Days Qty: 20 RF: 0 ibuprofen 200 mg Tablet 800 mg PO BID PRN (Reason: Pain) RF: 0 hydrocodone-ibuprofen 5-200 mg tablet 1 tab PO Q6H PRN (Reason: pain) Qty: 10 RF: 0 Benadryl Allergy 25 mg Tablet 25 mg PO Q6H PRN (Reason: Itching) RF: 0 Discharge Orders: Discharge Order (Routine); Ordered 02/25/20 Ordered By: Stanton Ames Referrals: Lizbeth Hodges DO [Primary Care Provider] - Discharge Diet: Usual diet Discharge Activity: Increase activity as tolerated Patient Instructions: Sprains - Ankle Activity Restrictions/Additional Instructions: Herminio wrap for comfort. Activity as tolerated. Use acetaminophen and ibuprofen for pain. Follow-up with primary care as needed. Return to the emergency department for new concerns. Coding Level of Care Code ED Electrical & Instrumentation Supervisor for Gabriel Robledo Exam Comprehensive
[2020-02-25 22:53] VITALS: BP 161/119; PULSE 98; RESP 18; TEMP 36.2; O2SAT 100; BMI 50.2
--- NOTE | 2020-02-25 22:56 | XR_ITS ---
WS: [id number] Facial bones, 3 views, 02/25/2020 Clinical Data: fall Comparison: None. Findings: The facial bones are intact. The orbits show no abnormalities. The sinuses demonstrate no air-fluid l evels. The temporomandibular joints are unremarkable. The soft tissues are normal. XR/XR facial bones min 3V* [id number] Impression: Negative facial bones.
--- NOTE | 2020-02-25 22:56 | XR_ITS ---
WS: [id number] Right wrist, 3 views, 02/25/2020 Clinical Data: fall Comparison: None. Findings: No fractures or dislocations are seen. The carpal bones are intact. There is no soft tissue swelling. The distal radius and ulna are not remarkable. XR/XR wrist RT min 3V* [id number] Impression: Negative right wrist.
--- NOTE | 2020-02-25 22:58 | XR_ITS ---
WS: [id number] Right leg including the tibia and fibula, 02/25/2020 Clinical Data: fall Comparison: None. Findings: No fractures or dislocations are seen. The tibia and fibula are intact. The soft tissues are normal. XR/XR tibia fibula RT 2V [id number] Impression: Negative for fracture.
--- NOTE | 2020-02-25 22:58 | XR_ITS ---
WS: [id number] Right femur and thigh, AP, frog-leg and lateral views, 02/25/2020 Clinical Data: fall Comparison: None. Findings: No fractures or dislocations are seen. The soft tissues are normal. The visualized knee shows no abno rmalities. XR/XR femur RT min 2V* [id number] Impression: Negative right femur and thigh.
[2020-02-26 00:09] VITALS: RESP 16
[2020-02-26 00:27] VITALS: BP 132/98; O2SAT 93
== END 2020-02-26 00:28 | disposition home or self-care (01) ==
PROVIDERS: Emergency Provider Nurse Practitioner Family; PCP Family Medicine
DX: S63.501A Unspecified sprain of right wrist, initial encounter (principal); S66.911A Strain of unspecified muscle, fascia and tendon at wrist and hand level, right hand, initial encounter; S70.01XA Contusion of right hip, initial encounter; S93.401A Sprain of unspecified ligament of right ankle, initial encounter; W01.198A Fall on same level from slipping, tripping and stumbling with subsequent striking against other object, initial encounter
CPT/HCPCS: 12345; 70150; 73110; 73552; 73590; 99281; 99283; E0114

== ENCOUNTER 2021-10-01 09:11 | Emergency (ER) | payer SELFPAY ==
[2021-10-01 09:21] VITALS: BP 164/102; PULSE 99; RESP 17; O2SAT 100; BMI 47.2
--- NOTE | 2021-10-01 09:32 | W.ED.DENTAL ---
HPI - Dental/Oral General: Chief complaint: Dental/Oral Stated complaint: Angel with toothache Time Seen by Provider: 10/01/21 09:22 History of Present Illness: Patient comes in with pain in her left upper jaw and swelling of her left cheek. States it started about 2 days ago. States she has a tooth that is broken in the left upper jaw. States she is trying to get into see a dentist this next week. On physical exam tooth #15 is fractured. There is no signs of fluctuance or peritonsillar abscess. She does have mild swelling of her left cheek. We will start her on antibiotics and discharged with precautions to return for worsening or changing symptoms. Associated symptoms: Denies fever(s) or odynophagia Review of Systems Const: Denies: fever(s) or body aches Eyes: Denies: change in vision or blurry vision ENMT: Denies: throat pain or odynophagia Card: Denies: chest pain or palpitations Resp: Denies: dyspnea or productive cough GI: Reports: hematochezia; Denies: abdominal pain, nausea or vomiting : Denies: flank pain Musc: Denies: neck pain or back pain Skin/Breast: Denies: rash or pruritus Neuro: Denies: headache(s) or numbness in extremities Psych: Denies: anxiety or change in appetite Endo: Denies: polyuria or excessive sweating PFS ED PFSH: Medical History (Updated 10/01/21 @ 09:31 by Surinder Fowler MD) History of fibromyalgia History of lupus History of seizure Social History Smoking and tobacco status: never smoked Female Reproductive History: Date of last menstrual period: 09/28/21 Physical Exam Const: COMMON NORMALS: no acute distress, patient oriented x3, healthy appearing and alert HENMT: COMMON NORMALS: normocephalic and atraumatic HEAD & SCALP: normocephalic and atraumatic OTHER: Tooth #15 is fractured, left cheek swelling, no fluctuance or signs of peridental abscess Eye: COMMON NORMALS: Equal, round and reactive pupils present and EOMs intact bilaterally PUPIL: Yes Equal, round and reactive pupils present Neck/C-Spine: COMMON NORMALS: full ROM and supple Resp: COMMON NORMALS: normal respiratory effort, No retractions and No use of accessory muscles Cardio: COMMON NORMALS: regular rate and regular rhythm RATE: regular rate RHYTHM: regular rhythm GI: COMMON NORMALS: Normal to inspection, nondistended, normoactive bowel sounds present, Soft to palpation and non-tender PALPATION: Yes Soft to palpation Back/Pelvis: COMMON NORMALS: thoracic and lumbar spine normal to inspection and no thoracic nor lumbar tenderness Extremity: COMMON NORMALS: normal to inspection and full ROM Neuro: COMMON NORMALS: patient oriented x3 SENSORIUM/ORIENTATION: Yes alert Psych: COMMON NORMALS: mental status grossly normal and cooperative Skin: COMMON NORMALS: no rashes or lesions noted and no wounds GENERAL SKIN EXAM: no rashes or lesions noted Course Vital Signs: Vital signs: Vital Signs Pulse Rate 99 10/01/21 09:21 Respiratory Rate 17 10/01/21 09:21 Blood Pressure 164/102 10/01/21 09:21 Pulse Oximetry 100 10/01/21 09:21 MDM - Dental/Oral Medical Decision Making Patient comes in by EMS after having multiple seizures this morning. Per EMS the patient's states that he had a seizure about 2 AM this morning at which time EMS was called but the patient refused to be transported. States that he had another episode where she found him confused. He appeared postictal. She did not witness the second seizure. The patient does have a history of seizure for which he takes Keppra. On physical exam here the patient does have some mild confusion, however he is alert and oriented x2 and answers questions and follows commands appropriately. Will check labs, CT, x-ray, and reassess. Discharge Plan Discharge Patient Disposition: Home Clinical Impression: Acute pulpitis Condition: Stable Prescriptions: New penicillin V potassium 500 mg tablet 500 mg PO BID 7 Days Qty: 14 0RF No Action amoxicillin 875 mg tablet 875 mg PO BID 10 Days Qty: 20 0RF ibuprofen 200 mg Tablet 800 mg PO BID PRN (Reason: Pain) 0RF hydrocodone-ibuprofen 5-200 mg tablet 1 tab PO Q6H PRN (Reason: pain) Qty: 10 0RF Rx Instructions: PT STATES THAT SHE ONLY TAKES ONE HALF TAB AT A TIME. Benadryl Allergy 25 mg Tablet 25 mg PO Q6H PRN (Reason: Itching) 0RF Discharge Orders: Discharge ED (Routine); Ordered 10/01/21 Ordered By: Surinder Fowler Referrals: Lizbeth Hodges DO [Primary Care Provider] - Coding Level of Care Code ED Graduate Teaching Assistant for Latanyag Venkat
[2021-10-01 09:41] VITALS: RESP 15
== END 2021-10-01 09:44 | disposition home or self-care (01) ==
PROVIDERS: Emergency Provider Emergency Medicine; PCP Family Medicine
DX: K04.01 Reversible pulpitis (principal)
CPT/HCPCS: 99282

== ENCOUNTER 2021-10-04 15:53 | Emergency (ER) | payer OTHER, SELFPAY ==
[2021-10-04 15:57] VITALS: BP 164/97; PULSE 101; RESP 18; TEMP 36.6; O2SAT 96; BMI 47.2
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
--- NOTE | 2021-10-04 16:08 | W.ED.SEIZURE ---
Documented by User: MAYELIN Chen 10/04/21 16:48 HPI - Seizure General: Chief Complaint: Seizure Stated Complaint: SEIZURE Time Seen by Provider: 10/04/21 16:00 Source: patient Mode of arrival: EMS Limitations: no limitations History of Present Illness: HPI Narrative: Patient is a 31-year-old female who presents to the ED today with complaints of a seizure. Patient tells me she was seeing a neurologist in [place] who diagnosed her with pain/stress induced absence pseudoseizures . Patient states she takes 250 mg valproic acid 3 times daily for her seizures. She currently has an upcoming appointment to establish with a new neurologist in [place]. Patient states over the past several days she has suffered from a tooth ache/dental abscess and states the pain from this has caused an increase in her baseline seizures. She states she will normally have a seizure once every few days but states because of the pain related to her tooth she has now been having seizures daily. Patient was seen here in our facility approximately 3 days ago for the dental abscess and placed on antibiotics. Patient states during her seizure today she struck the right aspect of her head and states she is only here for evaluation of her head injury. complaint: seizure Onset (ago): hour(s) Description of Episode: loss of consciousness -: second(s) Witnessed: Yes - by Bystander Trauma: Yes (head) Seizure History: Yes Place: Home Possible Precipitating Event: other (toothache) Associated symptoms: Deny chest pain, chills, fever(s) or malaise Treatments prior to arrival: none Review of Systems Const: Denies: fever(s), chills, body aches, fatigue or malaise Eyes: Denies: change in vision, blurry vision or photophobia ENMT: Reports: dental pain; Denies: throat pain or odynophagia Card: Denies: chest pain Resp: Denies: dyspnea GI: Denies: nausea or vomiting Musc: Reports: neck pain (following fall); Denies: back pain, extremity pain or joint pain Neuro: Reports: headache(s) (following fall); Denies: numbness in extremities, weakness in extremities, sensory changes or dizziness [facility] ED PFSH: Medical History History of fibromyalgia History of lupus History of seizure Social History Smoking and tobacco status: never smoked Female Reproductive History: Date of last menstrual period: 09/28/21 Physical Exam Const: COMMON NORMALS: no acute distress, patient oriented x3, no limitations and alert NUTRITIONAL APPEARANCE: obese morbidly obese ORIENTATION/CONSCIOUSNESS: Yes awake, Yes oriented to person, Yes oriented to place and Yes oriented to time HENMT: COMMON NORMALS: normocephalic and Normal external nose present HEAD & SCALP: normocephalic HEAD IMAGES: 1. R frontal/temporal hematoma FACE & SINUS: other (pt does have some swelling overlying her L maxillary region) NOSE: Normal external nose present MOUTH: Normal oral and palatal mucosa present, lip normal and tongue normal TEETH & GINGIVA IMAGES: 1. reports pain; she does have small area of gingival fluctuance most likely developing abscess THROAT: posterior oropharynx normal, tonsils normal and uvula midline Eye: GENERAL EYE: appearance normal, both eyes and all related structures Neck/C-Spine: COMMON NORMALS: full ROM CERVICAL SPINE: Yes cervical ROM normal, Yes Cervical spine tenderness (mild mid c spine), No step off deformity and No Paracervical spasm Chest: COMMONS NORMALS: normal inspection of the chest and normal palpation of entire chest wall Resp: COMMON NORMALS: normal respiratory effort and clear to auscultation bilaterally AUSCULTATION: clear to auscultation bilaterally Cardio: COMMON NORMALS: regular rate and regular rhythm RATE: regular rate RHYTHM: regular rhythm Back/Pelvis: COMMON NORMALS: thoracic and lumbar spine normal to inspection, no thoracic nor lumbar tenderness and thoraco-lumbar ROM normal Extremity: COMMON NORMALS: normal to inspection GENERAL: Yes normal exam except as noted Neuro: SARA COMA SCALE: document GCS findings Sara coma scale eye opening: Spontaneous Sara coma scale verbal response: Orientated Sara coma scale motor response: Obey commands Sara coma scale total score: 15 COMMON NORMALS: patient oriented x3, CN's II-XII intact bilaterally, moves all extremities, no focal motor deficits and no sensory deficits noted SENSORIUM/ORIENTATION: Yes alert, Yes oriented to person, Yes oriented to place and Yes oriented to time Skin: COMMON NORMALS: no rashes or lesions noted GENERAL SKIN EXAM: no rashes or lesions noted Course Vital Signs: Vital signs: Vital Signs Temperature 97.9 F 10/04/21 15:57 Pulse Rate 91 10/04/21 16:15 Respiratory Rate 16 10/04/21 16:15 Blood Pressure 164/97 10/04/21 15:57 Pulse Oximetry 100 10/04/21 16:15 MDM - Seizure Lab Data Labs: Radiology Impressions Cervical Spine CT 10/04/21 16:08 IMPRESSION: No cervical spine fracture. Head CT 10/04/21 16:08 IMPRESSION: No acute intracranial abnormality. Discharge Plan Discharge Patient Disposition: Home Clinical Impression: Pain, dental, Nonepileptic episode Condition: Stable Prescriptions: No Action amoxicillin 875 mg tablet 875 mg PO BID 10 Days Qty: 20 0RF ibuprofen 200 mg Tablet 800 mg PO BID PRN (Reason: Pain) 0RF hydrocodone-ibuprofen 5-200 mg tablet 1 tab PO Q6H PRN (Reason: pain) Qty: 10 0RF Rx Instructions: PT STATES THAT SHE ONLY TAKES ONE HALF TAB AT A TIME. Benadryl Allergy 25 mg Tablet 25 mg PO Q6H PRN (Reason: Itching) 0RF penicillin V potassium 500 mg tablet 500 mg PO BID 7 Days Qty: 14 0RF Discharge Orders: Discharge ED (Routine); Ordered 10/04/21 Ordered By: Stanton Ames Referrals: Lizbeth Hodges DO [Primary Care Provider] - Discharge Diet: Usual diet Discharge Activity: Increase activity as tolerated Activity Restrictions/Additional Instructions: Home and rest. Drink plenty of fluids. Continue with routine medications. Follow-up with primary care for further instruction. Follow-up with dentist for further care of dental infection. Sign Out Sign Out Data: Patient Sign Out occurred on 10/04/21 at 17:09. Patient's care was discussed, and care was transferred from to Stanton Ames. Coding Level of Care Code ED Business Education Professor for Chg Fwd Exam Comprehensive Documented by User: CAMILA Walton 10/04/21 17:22 HPI - Seizure General: Chief Complaint: Seizure Stated Complaint: SEIZURE Time Seen by Provider: 10/04/21 16:00 [facility] ED PFSH: Medical History History of fibromyalgia History of lupus History of seizure Social History Smoking and tobacco status: never smoked Physical Exam HENMT: HEAD IMAGES: 1. R frontal/temporal hematoma TEETH & GINGIVA IMAGES: 1. reports pain; she does have small area of gingival fluctuance most likely developing abscess Neuro: SARA COMA SCALE: document GCS findings [place] coma scale total score: 15 Course Vital Signs: Vital signs: Vital Signs Temperature 97.9 F 10/04/21 15:57 Pulse Rate 91 10/04/21 16:15 Respiratory Rate 16 10/04/21 16:15 Blood Pressure 164/97 10/04/21 15:57 Pulse Oximetry 100 10/04/21 16:15 MDM - Seizure MDM Narrative Medical decision making narrative: 31-year-old female comes in today for complaints of seizure activity. 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 Patient reports that right now she is in pain due to a dental infection. Patient is on oxycodone and ibuprofen. Examination of the face notes some mild swelling on the left facial area. Respirations are even lungs are clear to auscultation. Patient was needing evaluated due hitting her head and was concerned for injury. Differential diagnosis includes head injury, anxiety, nonepileptic seizure episodes, neck injury. CT of the head and neck were negative for any abnormality. Patient was treated with Ativan for her seizure, and ketorolac for her pain. No signs of serious injury or episodes of seizure was noted on my exam. Recommended patient follow-up with primary care for further instruction. Lab Data Labs: Radiology Impressions Cervical Spine CT 10/04/21 16:08 IMPRESSION: No cervical spine fracture. Head CT 10/04/21 16:08 IMPRESSION: No acute intracranial abnormality. Discharge Plan Discharge Patient Disposition: Home Clinical Impression: Pain, dental, Nonepileptic episode Condition: Stable Prescriptions: No Action amoxicillin 875 mg tablet 875 mg PO BID 10 Days Qty: 20 0RF ibuprofen 200 mg Tablet 800 mg PO BID PRN (Reason: Pain) 0RF hydrocodone-ibuprofen 5-200 mg tablet 1 tab PO Q6H PRN (Reason: pain) Qty: 10 0RF Rx Instructions: PT STATES THAT SHE ONLY TAKES ONE HALF TAB AT A TIME. Benadryl Allergy 25 mg Tablet 25 mg PO Q6H PRN (Reason: Itching) 0RF penicillin V potassium 500 mg tablet 500 mg PO BID 7 Days Qty: 14 0RF Discharge Orders: Discharge ED (Routine); Ordered 10/04/21 Ordered By: Stanton Ames Referrals: Lizbeth Hodges DO [Primary Care Provider] - Discharge Diet: Usual diet Discharge Activity: Increase activity as tolerated Activity Restrictions/Additional Instructions: Home and rest. Drink plenty of fluids. Continue with routine medications. Follow-up with primary care for further instruction. Follow-up with dentist for further care of dental infection. Sign Out Sign Out Data: Patient Sign Out occurred on 10/04/21 at 17:09. Patient's care was discussed, and care was transferred from to Stanton Ames. Coding Level of Care Code ED Business Education Professor for Gabriel Fwd Exam Comprehensive
[2021-10-04 16:15] VITALS: PULSE 91; RESP 16; O2SAT 100
[2021-10-04] MEDS: LORazepam 2 mg/mL INJ 1 mL IVP (17:31)
[2021-10-04] MEDS: ketorolac 30 mg/mL INJ IVP (17:31)
[2021-10-04 17:36] VITALS: BP 164/97; PULSE 78; RESP 15; O2SAT 98
[2021-10-04 17:47] VITALS: BP 139/88; PULSE 88; RESP 16; O2SAT 96
== END 2021-10-04 17:49 | disposition home or self-care (01) ==
PROVIDERS: Emergency Provider Nurse Practitioner Family; PCP Family Medicine
DX: R56.9 Unspecified convulsions (principal); K08.89 Other specified disorders of teeth and supporting structures
CPT/HCPCS: 70450; 72125; 96374; 96375; 99284; J1885; J2060

== ENCOUNTER 2021-10-06 14:01 | Emergency (ER) | payer SELFPAY ==
[2021-10-06 14:20] VITALS: BP 176/132; PULSE 99; RESP 18; TEMP 36.9; O2SAT 98; BMI 47.2
--- NOTE | 2021-10-06 14:38 | W.ED.SEIZURE ---
HPI - Seizure General: Chief Complaint: Seizure Stated Complaint: SEIZURE Time Seen by Provider: 10/06/21 14:29 History of Present Illness: HPI Narrative: Patient presents with what she describes a worsening dental abscess. She said it current antibiotics not working. She says she gets a recurrence or absence seizures when she has infection. She is currently taking her antiseizure medication as prescribed. She said that her face swelled up this morning where she can see our left eye but presently is doing much better. She says it hurts to chew on that left side. Denies any headache or head injury or any other injuries besides an abrasion to her right forearm which she sustained she said when she fell earlier today. Seizure History: Yes Associated symptoms: Deny chest pain, chills or fever(s) Review of Systems Const: Denies: fever(s), chills or body aches Eyes: Denies: eye discomfort ENMT: Reports: dental pain (Left upper molar. Said she had swelling to her cheek earlier in the mornin); Denies: throat pain Card: Denies: chest pain Resp: Denies: dyspnea GI: Denies: abdominal pain, nausea or vomiting Skin/Breast: Denies: rash Neuro: Reports: numbness in extremities, weakness in extremities, sensory changes, lack of coordination, dizziness, behavioral changes and seizure-like activity (She had a couple absence seizures today); Denies: headache(s) Psych: Denies: depression or suicidal ideation [facility] ED PFSH: Medical History History of fibromyalgia History of lupus History of seizure Social History Smoking and tobacco status: never smoked Female Reproductive History: Date of last menstrual period: 09/28/21 Physical Exam Narrative: EXAM NARRATIVE: No swelling noted to the cheek at this time no lymphadenopathy noted either. Patient is talking without problems, there is no trismus. Patient able to see out of both eyes without any difficulty. No swelling noted to the eye area. Const: COMMON NORMALS: no acute distress, patient oriented x3 and alert HENMT: COMMON NORMALS: normocephalic and external ears normal HEAD & SCALP: normocephalic EXTERNAL EAR: Yes external ears normal TEETH & GINGIVA IMAGES: 1. Swelling to the gum outside tooth #15 tenderness to the touch. No focal abscess noted. Eye: COMMON NORMALS: EOMs intact bilaterally Neck/C-Spine: COMMON NORMALS: no meningeal signs and no JVD Resp: COMMON NORMALS: normal respiratory effort and No use of accessory muscles Cardio: COMMON NORMALS: no JVD GI: INSPECTION: Yes normal to inspection Extremity: COMMON NORMALS: normal to inspection and full ROM Neuro: COMMON NORMALS: patient oriented x3 SENSORIUM/ORIENTATION: Yes alert MENINGEAL SIGNS: Yes no meningeal signs COORDINATION/BALANCE: tandem gait normal GAIT: Yes Normal gait present COORDINATION: tandem gait normal PUPIL EXAM: Normal pupillary reactivity/response: bilateral Psych: COMMON NORMALS: mental status grossly normal Skin: COMMON NORMALS: no rashes or lesions noted GENERAL SKIN EXAM: no rashes or lesions noted Course Vital Signs: Vital signs: Vital Signs Temperature 98.5 F 10/06/21 14:20 Pulse Rate 99 10/06/21 14:20 Respiratory Rate 18 10/06/21 14:20 Blood Pressure 176/132 10/06/21 14:20 Pulse Oximetry 98 10/06/21 14:20 MDM - Seizure MDM Narrative Medical decision making narrative: Patient presents with dental abscess. She said current antibiotics not working. Patient says her absence seizures get worse when she has an infection. She said she had a couple of the absence seizure spells today. Patient is take medication as directed. Patient not appearing acute distress did not appear postictal. Patient recently treated here for her dental abscess patient strong encourage follow-up dental provider soon as possible and change antibiotics was provided. Patient is to monitor blood pressure daily basis and report those to her PCP. Continue on present medication besides the old antibiotic that was prescribed. Discharge Plan Discharge Patient Disposition: Home Clinical Impression: History of seizure, Abscess, dental, HTN (hypertension) Condition: Stable Prescriptions: New clindamycin HCl 300 mg capsule 300 mg PO Q8H 7 Days Qty: 21 0RF Discontinued amoxicillin 875 mg tablet 875 mg PO BID 10 Days Qty: 20 0RF penicillin V potassium 500 mg tablet 500 mg PO BID 7 Days Qty: 14 0RF No Action ibuprofen 200 mg Tablet 800 mg PO BID PRN (Reason: Pain) 0RF hydrocodone-ibuprofen 5-200 mg tablet 1 tab PO Q6H PRN (Reason: pain) Qty: 10 0RF Rx Instructions: PT STATES THAT SHE ONLY TAKES ONE HALF TAB AT A TIME. Benadryl Allergy 25 mg Tablet 25 mg PO Q6H PRN (Reason: Itching) 0RF Discharge Orders: Discharge ED (Routine); Ordered 10/06/21 Ordered By: Willam Stubbs Referrals: Lizbeth Hodges DO [Primary Care Provider] - Discharge Diet: Usual diet Discharge Activity: Resume usual activity Patient Instructions: Dental Abscess (ED), Chronic Hypertension (ED) Activity Restrictions/Additional Instructions: Continue present medications. Stop current antibiotic. Take new antibiotic prescribed. Get tooth pulled as soon as possible. Check blood pressure on a daily basis record the readings and present those readings in 1 to 2 weeks your primary care provider. Coding Level of Care Code ED [employer]asting for Gabriel Fwd Exam Comprehensive
== END 2021-10-06 15:07 | disposition home or self-care (01) ==
PROVIDERS: Emergency Provider Nurse Practitioner Family; PCP Family Medicine
DX: K04.7 Periapical abscess without sinus (principal); I10 Essential (primary) hypertension
CPT/HCPCS: 99281

== ENCOUNTER 2022-01-11 02:37 | Emergency (ER) | payer SELFPAY ==
[2022-01-11 02:44] VITALS: BP 140/97; PULSE 96; RESP 18; TEMP 36.8; O2SAT 99; BMI 50.1
--- NOTE | 2022-01-11 02:44 | ECG_ITS ---
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 Measurements Intervals [place] Rate: 84 P: 38 VT: 166 QRS: -22 QRSD: 102 T: 48 QT: 377 QTc: 448 Interpretive Statements SINUS RHYTHM INCOMPLETE RIGHT BUNDLE BRANCH BLOCK [90+ ms QRS DURATION, TERMINAL R IN V1/V2, 40+ ms S IN I/aVL/V4/V5/V6] MODERATE VOLTAGE CRITERIA FOR LVH, CONSIDER NORMAL VARIANT [MEETS CRITERIA IN ONE OF: R(aVL), S(V1), R(V5), R(V5/V6)+S(V1)] POSSIBLE ANTERIOR MYOCARDIAL INFARCTION , OF INDETERMINATE AGE [30 ms Q WAVE IN V3/V4, OR R < 0.2 mV IN V4] No previous ECG available for comparison Electronically Signed On 01-11-2022 10:24:24 CDT by Jonah Magana M.D. [id number]
[2022-01-11 02:54] LABS: Basophils # 0.1 10^3/uL (0.0-0.1); Basophils % 0.6 %; Eosinophils # 0.3 10^3/uL (0.0-0.8); Eosinophils % 2.5 %; Hematocrit 41.9 % (37.0-47.0); Hemoglobin 14.8 g/dL (11.5-15.3); Lymphocytes # 2.2 10^3/uL (0.8-4.8); Lymphocytes % 20.9 %; Mean Corpuscular HGB Conc 35.3 g/dL (30.0-36.0); Mean Corpuscular Hemoglobin 30.5 pg (28.0-34.0); Mean Corpuscular Volume 86.2 fl (81-99); Mean Platelet Volume 9.7 fL (7.4-10.4); Monocytes # 0.5 10^3/uL (0.2-0.9); Monocytes % 4.9 %; Neutrophils % 70.7 %; Nucleated Red Blood Cells % 0 %; Platelet Count 299 10^3/cmm (130-400); Red Blood Count 4.86 10^6/uL (4.1-5.3); Red Cell Distribution Width 12.9 % (12.1-15.1); White Blood Count 10.5 10^3/uL (4.0-10.0)
--- NOTE | 2022-01-11 02:54 | W.ED.SOB ---
HPI - SOB/Dyspnea General: Chief Complaint: Shortness of Breath/Dyspnea Stated Complaint: SOB Time Seen by Provider: 01/11/22 02:39 Source: patient and EMS Mode of arrival: EMS Limitations: no limitations History of Present Illness: HPI Narrative: 31-year-old female who states that roughly 3 hours ago she started having some shortness of breath along with palpitations and feeling dizzy. She has been having numbness and tingling in her hands as well. She states she does have a history of anxiety and panic attacks but is feels a little different. She denies any worsening improving factors her pulse ox here is 100% on room air. She denies any cough or fever she does have a history of lupus. Associated symptoms: Reports chest pain; Deny abdominal pain, fever(s), nausea or vomiting Review of Systems Const: Denies: fever(s), chills, body aches or change in appetite Eyes: Denies: blurry vision or eye discomfort ENMT: Denies: throat pain or dental pain Card: Reports: chest pain Resp: Reports: dyspnea GI: Denies: abdominal pain, nausea, vomiting or diarrhea : Denies: dysuria Musc: Denies: neck pain or back pain Skin/Breast: Denies: rash Neuro: Denies: headache(s) Psych: Denies: depression Ruddy/Lymph: Denies: easy bruising All/Imm: Denies: urticaria PFSH ED PFSH: Medical History History of fibromyalgia History of lupus History of seizure Social History Smoking and tobacco status: never smoked Female Reproductive History: Date of last menstrual period: 09/28/21 Physical Exam Const: COMMON NORMALS: no acute distress, patient oriented x3 and healthy appearing NUTRITIONAL APPEARANCE: obese HENMT: COMMON NORMALS: normocephalic and atraumatic HEAD & SCALP: normocephalic and atraumatic Eye: COMMON NORMALS: Equal, round and reactive pupils present and EOMs intact bilaterally PUPIL: Yes Equal, round and reactive pupils present Neck/C-Spine: COMMON NORMALS: full ROM and supple Chest: COMMONS NORMALS: normal inspection of the chest and normal palpation of entire chest wall Resp: COMMON NORMALS: normal respiratory effort, No retractions, No use of accessory muscles and clear to auscultation bilaterally AUSCULTATION: clear to auscultation bilaterally Cardio: COMMON NORMALS: regular rate, regular rhythm and No murmurs present (Cardio) RATE: regular rate RHYTHM: regular rhythm GI: COMMON NORMALS: Normal to inspection, nondistended, normoactive bowel sounds present, Soft to palpation, non-tender and no masses PALPATION: Yes Soft to palpation Extremity: COMMON NORMALS: normal to inspection and full ROM Neuro: COMMON NORMALS: patient oriented x3, moves all extremities and no focal motor deficits Psych: COMMON NORMALS: mental status grossly normal, Normal thought process present and cooperative THOUGHT PROCESS: Normal thought process present Skin: COMMON NORMALS: no rashes or lesions noted and no wounds GENERAL SKIN EXAM: no rashes or lesions noted Course Vital Signs: Vital signs: Vital Signs Temperature 98.3 F 01/11/22 02:44 Pulse Rate 82 01/11/22 03:14 Respiratory Rate 20 H 01/11/22 03:14 Blood Pressure 132/103 01/11/22 03:14 Pulse Oximetry 99 01/11/22 03:14 MDM - SOB/Dyspnea Medical Decision Making Patient presents here with shortness of breath that is likely anxiety related her troponin EKG x-ray and D-dimer all negative. She feels improved here after Ativan her vital signs here been normal she is stable for discharge and is to follow-up with her PCP and return if worsening. Lab Data : 01/11/22 02:49 01/11/22 02:49 Labs/Radiology: Laboratory Results WBC 10.5 10^3/uL (4.0-10.0) H 01/11/22 02:49 RBC 4.86 10^6/uL (4.1-5.3) 01/11/22 02:49 Hgb 14.8 g/dL (11.5-15.3) 01/11/22 02:49 Hct 41.9 % (37.0-47.0) 01/11/22 02:49 MCV 86.2 fl (81-99) 01/11/22 02:49 MCH 30.5 pg (28.0-34.0) 01/11/22 02:49 MCHC 35.3 g/dL (30.0-36.0) 01/11/22 02:49 RDW 12.9 % (12.1-15.1) 01/11/22 02:49 Plt Count 299 10^3/cmm (130-400) 01/11/22 02:49 MPV 9.7 fL (7.4-10.4) 01/11/22 02:49 Neut % (Auto) 70.7 % 01/11/22 02:49 Lymph % (Auto) 20.9 % 01/11/22 02:49 [place] % (Auto) 4.9 % 01/11/22 02:49 Eos % (Auto) 2.5 % 01/11/22 02:49 Baso % (Auto) 0.6 % 01/11/22 02:49 Neut # (Auto) 7.40 10^3/uL (1.8-7.7) 01/11/22 02:49 Lymph # (Auto) 2.2 10^3/uL (0.8-4.8) 01/11/22 02:49 [place] # (Auto) 0.5 10^3/uL (0.2-0.9) 01/11/22 02:49 Eos # (Auto) 0.3 10^3/uL (0.0-0.8) 01/11/22 02:49 Baso # (Auto) 0.1 10^3/uL (0.0-0.1) 01/11/22 02:49 Nucleated RBC % (auto) 0 % 01/11/22 02:49 Nucleated RBCs # 0.0 /100WBC 01/11/22 02:49 D-Dimer 0.51 ug/mIFEU (0-0.59) 01/11/22 02:57 Sodium 137 mmol/L (136-145) 01/11/22 02:49 Potassium 4.0 mmol/L (3.5-5.1) 01/11/22 02:49 Chloride 100 mmol/L (98-107) 01/11/22 02:49 Carbon Dioxide 25 mmol/L (22-29) 01/11/22 02:49 Anion Gap 16.0 (5-19) 01/11/22 02:49 BUN 15 mg/dL (6-20) 01/11/22 02:49 Creatinine 0.7 mg/dL (0.5-0.9) 01/11/22 02:49 GFR Calculation 98.9 mL/min (90-130) 01/11/22 02:49 Glucose 96 mg/dL (65-115) 01/11/22 02:49 Calculated Osmolality 285 mOsm/kg (285-295) 01/11/22 02:49 Calcium 9.3 mg/dL (8.5-10.5) 01/11/22 02:49 Total Bilirubin 0.2 mg/dL (0.15-1.2) 01/11/22 02:49 AST 10 U/L (0-32) 01/11/22 02:49 ALT 15 U/L (0-33) 01/11/22 02:49 Alkaline Phosphatase 88 IU/L (35-105) 01/11/22 02:49 Troponin T Baseline 6 ng/L (0-10) 01/11/22 02:49 NT-Pro-B Natriuret Pep 15 pg/mL (0-125) 01/11/22 02:49 Total Protein 7.9 g/dL (6.6-8.7) 01/11/22 02:49 Albumin 4.4 g/dL (3.5-5.2) 01/11/22 02:49 Globulin 3.5 g/dL (1.3-4.6) 01/11/22 02:49 HCG, Qual Negative (Negative) 01/11/22 02:57 EKG Data EKG 1: I personally reviewed and interpreted this EKG as follows: EKG Interpretation Date: 01/11/22 EKG interpretation time: 02:51 Interpretation: nsr hr 84 no sst or t wave abnormalities qrs 102 qtc 418 Discharge Plan Discharge Patient Disposition: Home Clinical Impression: Shortness of breath Condition: Stable Prescriptions: No Action ibuprofen 200 mg Tablet 800 mg PO BID PRN (Reason: Pain) 0RF hydrocodone-ibuprofen 5-200 mg tablet 1 tab PO Q6H PRN (Reason: pain) Qty: 10 0RF Rx Instructions: PT STATES THAT SHE ONLY TAKES ONE HALF TAB AT A TIME. Benadryl Allergy 25 mg Tablet 25 mg PO Q6H PRN (Reason: Itching) 0RF Discharge Orders: Discharge ED (Routine); Ordered 01/11/22 Ordered By: Jasper Case Referrals: Carroll,Lizbeth L, DO [Primary Care Provider] - 1-3 days Discharge Diet: Advance as tolerated Discharge Activity: Resume usual activity Patient Instructions: Shortness of Breath (ED) Coding Level of Care Code ED Game Designer for Gabriel Fwd Exam Comprehensive
[2022-01-11] MEDS: sodium chloride 0.9% 1,000 ML 999 ML IV ×2 (02:59→03:00)
[2022-01-11] MEDS: LORazepam 2 mg/mL INJ 1 mL 1 MG IVP (03:00)
--- NOTE | 2022-01-11 03:03 | XRR_ITS ---
PROCEDURE INFORMATION: Exam: XR Chest Exam date and time: 01/11/2022 3:09 AM Age: 31 years old Clinical indication: Shortness of breath; Patient HX: C/O SOB TECHNIQUE: Imaging protocol: Radiologic exam of the chest. Views: 1 view. COMPARISON: CT cervical spin wo con* [id number] 10/04/2021 4:39 PM FINDINGS: Lungs: Unremarkable. No consolidation. Pleural spaces: Unremarkable. No pleural effusion. No pneumothorax. Heart/Mediastinum: Unremarkable. No cardiomegaly. Bones/joints: Unremarkable. XR/XR chest 1V portable [id number] IMPRESSION: No acute findings.
[2022-01-11 03:14] VITALS: BP 132/103; PULSE 82; RESP 20; O2SAT 99
[2022-01-11 03:15] LABS: HCG, Serum Qual Negative (Negative)
[2022-01-11 03:16] LABS: D Dimer 0.51 ug/mIFEU (0-0.59)
[2022-01-11 03:23] LABS: Troponin(5th) Baseline 6 ng/L (0-10)
[2022-01-11 03:28] LABS: Alanine Aminotransferase 15 U/L (0-33); Albumin Level 4.4 g/dL (3.5-5.2); Alkaline Phosphatase 88 IU/L (35-105); Aspartate Amino Transferase 10 U/L (0-32); Blood Urea Nitrogen 15 mg/dL (6-20); Calcium 9.3 mg/dL (8.5-10.5); Carbon Dioxide 25 mmol/L (22-29); Chloride 100 mmol/L (98-107); Globulin 3.5 g/dL (1.3-4.6); Glomerular Filtration Rate 98.9 mL/min (90-130); Glucose 96 mg/dL (65-115); Osmolality Calculated 285 mOsm/kg (285-295); Sodium 137 mmol/L (136-145); Total Bilirubin 0.2 mg/dL (0.15-1.2); Total Protein 7.9 g/dL (6.6-8.7)
[2022-01-11 03:32] LABS: NT Pro B Type Natriuretic Pept 15 pg/mL (0-125)
[2022-01-11 03:55] VITALS: BP 145/94; PULSE 88; RESP 21; O2SAT 100
== END 2022-01-11 03:56 | disposition home or self-care (01) ==
PROVIDERS: Emergency Provider Emergency Medicine; PCP Family Medicine
DX: R06.02 Shortness of breath (principal)
CPT/HCPCS: 71045; 80053; 83880; 84484; 84703; 85025; 85378; 93005; 96361; 96374; 99285; J2060; J7030